=== PATIENT | female | born 2000 | race Two or more races ===

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

== ENCOUNTER 2021-04-16 09:00 | Outpatient (CLI) | payer OTHER | END 2021-04-16 09:15 | disposition home or self-care (01) | LOC: PPH VACUNA 09:00 | PROVIDERS: ATTEND Emergency Medicine Pediatric Emergency Medicine | DX: Z23 Encounter for immunization (principal) ==

== ENCOUNTER 2021-10-20 10:32 | Outpatient (CLI) | payer OTHER | END 2021-10-20 10:36 | disposition home or self-care (01) | LOC: RAD 10:32 | DX: S32.2XXA Fracture of coccyx, initial encounter for closed fracture (principal) ==

== ENCOUNTER 2021-10-30 09:38 | Outpatient (CLI) | payer OTHER | END 2021-10-30 09:40 | disposition home or self-care (01) | LOC: RAD 09:38 | PROVIDERS: ATTEND Physical Medicine & Rehabilitation | DX: M53.3 Sacrococcygeal disorders, not elsewhere classified (principal) ==